=== PATIENT | male | born 1970 | race Caucasian/White ===

== ENCOUNTER 2017-09-22 22:06 | Emergency (ER) | payer MEDICARE, MEDICAID ==
[2017-09-22 22:12] VITALS: BP 153/86; PULSE 82; RESP 16; TEMP 97.5; O2SAT 100
[2017-09-22] MEDS ORDERED: Lidocaine 1% Inj (20ml) ONE (22:17)
--- NOTE | 2017-09-22 22:27 | ED PDOC ---
HPI: General Adult Time Seen by Provider: 09/22/17 22:13 Chief Complaint (Nursing): Upper Extremity Problem/Injury History Per: Patient Additional Complaint(s): Pt. states earlier today he closed a car door on his L ring finger causing pain. Denies numbness, tingling. Past Medical History Reviewed: Historical Data, Nursing Documentation, Vital Signs Vital Signs: Last Vital Signs Temp 97.5 F L 09/22/17 22:10 Pulse 82 09/22/17 22:10 Resp 16 09/22/17 22:10 BP 153/86 H 09/22/17 22:10 Pulse Ox 100 09/22/17 22:29 - Family History Family History: States: No Known Family Hx - Home Medications Home Medications: Ambulatory Orders Medication Instructions Recorded Naproxen [Naprosyn] 500 mg PO BID PRN #10 tab 09/22/17 - Allergies Allergies/Adverse Reactions: Allergies Allergy/AdvReac Type Severity Reaction Status Date / Time No Known Allergies Allergy Verified 09/22/17 22:10 Review of Systems ROS Statement: Except As Marked, All Systems Reviewed And Found Negative Physical Exam - Physical Exam Appears: Positive for: Well, Non-toxic, No Acute Distress Skin: Positive for: Normal Color, Warm. Negative for: Rash Pulses-Radial (L): 2+ Extremity: Positive for: Normal ROM (L 4th digit actively), Other (L 4th digit with ~30% subungual hematoma and moderate tenderness on distal phalanx without deformity; nail is intact) Neurologic/Psych: Positive for: Alert, Oriented - ECG O2 Sat by Pulse Oximetry: 100 - Radiology X-Ray: Interpreted by Me (L 4th digit x-ray) X-Ray Interpretation: No Acute Disease Procedures - Time-Out Type of Procedure: Subungual hematoma evacuation Site of Procedure: L 4th digit Correct Patient (with visual ID + MR# on ID Band): Yes Correct Procedure: Yes Correct Site Marked: Yes X-Ray Marked: Yes PA/Tech: [place] - Nail Trepanation Nail Trepanation Location: L 4th digit Method of Drainage: nail cauterized Sterile Dressing Applied: Yes Finger Splint: Yes Progress: Lidocaine instilled into wound. Pt. tolerated procedure well. Reports complete relief of pain. Disposition - Clinical Impression Clinical Impression: Subungual hematoma - Patient ED Disposition Is Patient to be Admitted: No - Disposition Referrals: [facility] [Outside] Disposition: Routine/Home Disposition Time: 22:42 Condition: STABLE Prescriptions: Naproxen [Naprosyn] 500 mg PO BID PRN #10 tab PRN Reason: Pain Instructions: Subungual Hematoma (ED) Forms: [facility] (Azeri) Print Language: SAMI
[2017-09-22] MEDS ORDERED: Naproxen 500 MG TAB PO ONE (22:41)
--- NOTE | 2017-09-23 10:41 | RAD ---
PROCEDURE: Left ring finger radiographs. HISTORY: trauma COMPARISON: None. TECHNIQUE: AP radiograph of the left hand, as well as spot oblique and lateral images of left ring finger were obtained. FINDINGS: LEFT RING FINGER: Left ring finger normal, without fracture of focal lesion. Remainder of the left hand (as seen on the AP view) is grossly unremarkable. JOINTS: Normal. SOFT TISSUES: Normal. OTHER FINDINGS: None. IMPRESSION: Normal left ring finger radiographs.
== END 2017-09-22 23:03 | disposition home or self-care (01) ==
LOC: H.ER 22:06
DX: S60.142A Contusion of left ring finger with damage to nail, initial encounter (principal); W22.8XXA Striking against or struck by other objects, initial encounter; Y92.89 Other specified places as the place of occurrence of the external cause